=== PATIENT | female | born 1965 | race Caucasian/White ===

== ENCOUNTER 2018-04-08 06:13 | Day surgery (SDC) | payer OTHER ==
[2018-04-08] MEDS ORDERED: MIDAZOLAM 1 MG/ML 2 ML INJ ×2 (08:32)
[2018-04-08] MEDS ORDERED: FENTAnyl 50 MCG/ML VIAL (08:32)
== END 2018-04-08 10:03 | disposition home or self-care (01) ==
LOC: GIL 06:13
DX: Z12.11 Encounter for screening for malignant neoplasm of colon (principal); K57.30 Diverticulosis of large intestine without perforation or abscess without bleeding; K64.8 Other hemorrhoids
CPT/HCPCS: 45378

== ENCOUNTER 2018-09-28 12:01 | Day surgery (SDC) | payer OTHER ==
[~2018-09-28 12:01] MED LIST: CEFAZOLIN 1 GM INJ; CEFAZOLIN 2 GM/50 ML (PMX) 50 ML IVPB; DEXAMETHASONE 4 MG/ML 5 ML INJ; ONDANSETRON 4 MG INJ; SEVOFLURANE 15 MIN
[2018-09-28] MEDS ORDERED: LIDOCAINE 2% (SDV) 5 ML INJ (12:09)
[2018-09-28] MEDS ORDERED: MIDAZOLAM 1 MG/ML 2 ML INJ (12:09)
[2018-09-28] MEDS ORDERED: PROPOFOL 20 ML (12:09)
[2018-09-28] MEDS ORDERED: ROCURONIUM 50 MG INJ (12:09)
[2018-09-28] MEDS ORDERED: GLYCOPYRROLATE 0.4 MG INJ (12:09)
[2018-09-28] MEDS ORDERED: FENTAnyl 50 MCG/ML VIAL ×2 (12:09→15:56)
[2018-09-28] MEDS ORDERED: NEOSTIGMINE 3 MG/3 ML SYRINGE (12:09)
[2018-09-28] MEDS ORDERED: HYDROCORTISONE 100 MG INJ (13:23)
[2018-09-28] MEDS ORDERED: BUPIVACAINE 0.25% (MPF) 30 ML INJ (14:03)
[2018-09-28] MEDS: BUPIVACAINE 0.25% (MPF) 30 ML INJ INJ (14:30)
[2018-09-28] MEDS ORDERED: BACITRACIN/POLYMYXIN 28.35 GM OINT TOP (15:16)
[2018-09-28] MEDS ORDERED: HYDROmorphONE 0.5 MG/0.5 ML SYG (15:56)
[2018-09-28] MEDS: FENTAnyl 50 MCG/ML VIAL IV (16:07)
[2018-09-28] MEDS: HYDROmorphONE 0.5 MG/0.5 ML SYG IV (16:08)
== END 2018-09-28 17:15 | disposition home or self-care (01) ==
LOC: SDS 12:01
DX: G56.02 Carpal tunnel syndrome, left upper limb (principal); M65.842 Other synovitis and tenosynovitis, left hand; J45.909 Unspecified asthma, uncomplicated
CPT/HCPCS: 26145; 71045; 84703; 87070; 87075; 87116; 88304; 93005